=== PATIENT | male | born 1980 | race Caucasian/White ===

== ENCOUNTER 2017-04-08 20:13 | Emergency (ER) | payer SELFPAY ==
[2017-04-08 22:30] LABS: Bilirubin,Urine NEG (Negative); Blood,Urine SM (Negative); Color,Urine Yellow (Yellow); Mucus,Urine FEW /HPF; Nitrite,Urine NEG (Negative); Protein,Urine <15 mg/dL mg/dL (Negative); Urobilinogen,Urine < 2.0 mg/dL (<2.0); WBC,Urine < 1.0 /HPF (0.0-6.0)
--- NOTE | 2017-04-08 23:15 | XRay Report ---
FINAL REPORT PROCEDURE: XR SPINE LUMBOSACRAL 2-3V TECHNIQUE: Lumbar spine radiographs, including AP, lateral, and lumbosacral spot views. CPT 69451 HISTORY: back pain COMPARISON: No prior studies are available for comparison. FINDINGS: Alignment: Normal. Vertebral body heights/Disk spaces: Normal. Fracture(s): None. Facets: Normal. Bone mineralization: Normal. IMPRESSION: No evidence of an acute fracture or dislocation of the lumbar spine..
[2017-04-09] MEDS ORDERED: MOTRIN PO ONE (00:35)
--- NOTE | 2017-04-09 00:38 | Emergency Department Report ---
ED Back Pain/Injury HPI - General Chief Complaint: Back Pain/Injury Stated Complaint: BACK PAIN Time Seen by Provider: 04/09/17 00:33 Source: patient Limitations: No Limitations - History of Present Illness Initial Comments: 36-year-old male comes in for having a fall off a 16 feet ladder yesterday which is . Patient's now reporting back pain. He denies any loss of consciousness denies any head injury. Patient reports that he took a Tylenol 3 which helped with this pain and he was able to sleep. Patient has not taken any medication on Tuesday. He denies any urinary or bowel incontinence denies any headache fever chills nausea vomiting. Denies any alcohol use. Has no past medical history currently takes no medications and has no known drug allergies. MD Complaint: back pain, fall -: days(s) (2) Similar Symptoms Previously: No Place: work Radiation: none Severity scale (0 -10): 8 Quality: aching, other (stiffness) Consistency: intermittent Improves With: medication Worsens With: other (bending) Associated Symptoms: denies: weakness, numbness, difficulty urinating, incontinence, fever/chills, headaches Treatments Prior to Arrival: acetaminophen - Related Data Previous Rx's Medication Instructions Recorded Last Taken Type Prednisone [Prednisone 10 mg 10 mg PO .TAPER #1 tab.ds.pk 11/03/13 Unknown Rx (6-Day Pack, 21 Tabs)] hydrOXYzine HCL [Atarax] 25 mg PO Q6HR PRN #10 tablet 11/03/13 Unknown Rx Ibuprofen [Motrin 800 MG tab] 800 mg PO Q8H PRN #15 tablet 04/09/17 Unknown Rx Allergies Allergy/AdvReac Type Severity Reaction Status Date / Time No Known Allergies Allergy Verified 11/02/13 22:44 ED Review of Systems ROS: Stated complaint: BACK PAIN Other details as noted in HPI Constitutional: denies: chills, fever Eyes: denies: eye pain, eye discharge, vision change ENT: denies: ear pain, throat pain Respiratory: denies: cough, shortness of breath, wheezing Cardiovascular: denies: chest pain, palpitations Endocrine: no symptoms reported Gastrointestinal: denies: abdominal pain, nausea, diarrhea Genitourinary: denies: urgency, dysuria Musculoskeletal: back pain Skin: denies: rash, lesions Neurological: denies: headache, weakness, paresthesias Psychiatric: denies: anxiety, depression Hematological/Lymphatic: denies: easy bleeding, easy bruising ED Past Medical Hx - Past Medical History Previous Medical History?: No - Surgical History Past Surgical History?: No - Social History Smoking Status: Never Smoker Substance Use Type: None - Medications Home Medications: Home Medications Medication Instructions Recorded Confirmed Last Taken Type Prednisone [Prednisone 10 mg 10 mg PO .TAPER #1 tab.ds.pk 11/03/13 Unknown Rx (6-Day Pack, 21 Tabs)] hydrOXYzine HCL [Atarax] 25 mg PO Q6HR PRN #10 tablet 11/03/13 Unknown Rx Ibuprofen [Motrin 800 MG tab] 800 mg PO Q8H PRN #15 tablet 04/09/17 Unknown Rx ED Physical Exam - General Limitations: No Limitations General appearance: alert, in no apparent distress - Head Head exam: Present: atraumatic, normocephalic - Eye Eye exam: Present: normal appearance - ENT ENT exam: Present: mucous membranes moist - Neck Neck exam: Present: normal inspection - Extremities Exam Extremities exam: Present: normal inspection, full ROM - Back Exam Back exam: Present: normal inspection, full ROM - Expanded Back Exam Expanded Back exam: Negative Straight Leg Raising: Left, Right - Neurological Exam Neurological exam: Present: alert, oriented X3 - Psychiatric Psychiatric exam: Present: normal affect, normal mood - Skin Skin exam: Present: warm, dry, intact, normal color. Absent: rash ED Course Vital Signs 04/08/17 21:57 Temperature 98 F Pulse Rate 82 Respiratory 16 Rate Blood Pressure 137/86 O2 Sat by Pulse 98 Oximetry ED Medical Decision Making - Radiology Data X-rays are negative for any fractures or dislocations - Medical Decision Making Patient has been evaluated by this provider fast track. I discussed the patient with ibuprofen for probably be best for his pain. Discussed the patient to follow up with his primary care provider which he reports is a doctor somewhere in [place]. Patient and verbalized understanding Critical care attestation.: If time is entered above; I have spent that time in minutes in the direct care of this critically ill patient, excluding procedure time. ED Disposition Clinical Impression: Back pain due to injury Fall Qualifiers: Encounter type: initial encounter Qualified Code(s): W19.XXXA - Unspecified fall, initial encounter Disposition: DC-01 TO HOME OR SELFCARE Is pt being admited?: No Does the pt Need Aspirin: No Condition: Stable Instructions: Fall Prevention (ED), Acute Low Back Pain (ED) Additional Instructions: Please take medication as prescribed. Please eat this medication. If back persist or gets worse please follow up with her primary care provider within 3- 7 days. Prescriptions: Ibuprofen [Motrin 800 MG tab] 800 mg PO Q8H PRN #15 tablet PRN Reason: Pain Referrals: HIRO SANDERS MD [Primary Care Provider] - 3-5 Days [facility] [Provider Group] - 3-5 Days Forms: Work/School Release Form(ED)
[2017-04-09 00:55] VITALS: BP 134/83
== END 2017-04-09 00:56 | disposition home or self-care (01) ==
LOC: ED 20:13
DX: S29.9XXA Unspecified injury of thorax, initial encounter (principal); W11.XXXA Fall on and from ladder, initial encounter; Y93.89 Activity, other specified; Y99.0 Civilian activity done for income or pay; Y92.69 Other specified industrial and construction area as the place of occurrence of the external cause
CPT/HCPCS: 72100; 81001

== ENCOUNTER 2018-02-18 00:20 | Emergency (ER) | payer SELFPAY ==
[2018-02-18] MEDS ORDERED: TORADOL IV ONE (01:40)
[2018-02-18] MEDS ORDERED: ZOFRAN IV ONE (01:40)
[2018-02-18 02:10] LABS: Basophils # (Auto) 0.1 K/mm3 (0.0-0.1); Basophils % (Auto) 0.6 % (0.0-1.8); Eosinophils # (Auto) 0.2 K/mm3 (0.0-0.4); Eosinophils % (Auto) 1.1 % (0.0-4.3); Hematocrit 45.6 % (35.5-45.6); Hemoglobin 15.3 gm/dl (11.8-15.2); Lymphocytes # (Auto) 1.9 K/mm3 (1.2-5.4); Mean Corpuscular HGB Conc 34 % (32-34); Mean Corpuscular Hemoglobin 30 pg (28-32); Mean Corpuscular Volume 89 fl (84-94); Monocytes # (Auto) 1.4 K/mm3 (0.0-0.8); Monocytes % (Auto) 9.5 % (0.0-7.3); Platelet Count 300 K/mm3 (140-440)
[2018-02-18 02:37] LABS: Alanine Aminotransferase 96 units/L (7-56); Albumin 4.7 g/dL (3.9-5); BUN/Creatinine Ratio 17; Blood Urea Nitrogen 12 mg/dL (9-20); Calcium 9.8 mg/dL (8.4-10.2); Hemolysis Index 7
--- NOTE | 2018-02-18 08:17 | Cat Scan Report ---
FINAL REPORT EXAM: CT ABDOMEN PELVIS WO CON HISTORY: B/L flank and groin pain TECHNIQUE: CT images obtained through the Abdomen and Pelvis without contrast. Transaxial,coronal an d sagittal reformats are provided. PRIORS: None. FINDINGS: Imaged intrathoracic contents are unremarkable. Kidneys are normal in size, axis and position. No hydronephrosis or nephrolithiasis. The ureters are normal in course and caliber. No stones are seen within the urinary bladder. The liver, gallbladder, pancreas, spleen, and adrenal glands demonstrate a normal noncontrast appeara nce. Hollow enteric organs are normal in course and caliber. Focal edema and stranding are centered on a c ouple of left lower quadrant colonic diverticula seen on axial series 2, images 106-112. Additional m uch more significant pericolonic stranding and edema centered in the lower pelvic sigmoid colon on ax ial series 2, image 147. No pneumoperitoneum or focal fluid collection to suggest abscess formation a t this time. Appendix is normal. No intra-abdominal free air/fluid or lymphadenopathy. Aorta is normal in course and caliber. Superficial soft tissues are unremarkable. No acute or aggressive appearing skeletal findings. IMPRESSION: Two separate areas of acute diverticulitis in the left and mid lower abdomen/pelvis. No pneumoperiton eum or focal fluid collection to suggest abscess formation at this time.
--- NOTE | 2018-02-18 09:02 | Emergency Department Report ---
HPI - General Chief Complaint: Abdominal Pain Time Seen by Provider: 02/18/18 08:52 - HPI HPI: Room 4 The patient is a 37-year-old male presenting with a chief complaint of left lower quadrant abdominal pain. The patient states 4 days ago he had pain in his left flank the pain is since moved to the suprapubic and left lower quadrant region. Patient was to dysuria but denies hematuria or fever. Patient admits to nausea and vomiting. The patient states his pain is been intermittent. Patient was administered Toradol prior to my exam currently denies having pain Location: [See above] Duration: 4 days Quality: Pain Severity: Currently 0/10 Modifying factors: [see above] Context: [see above] Mode of transportation: [not driving] ED Past Medical Hx - Past Medical History Previous Medical History?: No - Surgical History Past Surgical History?: No - Family History Family history: no significant - Social History Smoking Status: Never Smoker Substance Use Type: None (denies illicit drug use) - Medications Home Medications: Home Medications Medication Instructions Recorded Confirmed Last Taken Type Prednisone [Prednisone 10 mg 10 mg PO .TAPER #1 tab.ds.pk 11/03/13 Unknown Rx (6-Day Pack, 21 Tabs)] hydrOXYzine HCL [Atarax] 25 mg PO Q6HR PRN #10 tablet 11/03/13 Unknown Rx Ibuprofen [Motrin 800 MG tab] 800 mg PO Q8H PRN #15 tablet 04/09/17 Unknown Rx HYDROcodone/APAP 5-325 [[place] 1 - 2 each PO Q6HR PRN #14 tablet 02/18/18 Unknown Rx 5/325] Promethazine [Phenergan TAB] 25 mg PO Q6HR PRN #20 tab 02/18/18 Unknown Rx levoFLOXacin [Levaquin] 750 mg PO QDAY #10 tablet 02/18/18 Unknown Rx metroNIDAZOLE [Flagyl] 500 mg PO Q8HR #30 tablet 02/18/18 Unknown Rx ED Review of Systems ROS: Stated complaint: ABD GROIN PAIN Other details as noted in HPI Constitutional: denies: fever Eyes: denies: eye pain ENT: denies: throat pain Respiratory: no symptoms reported Cardiovascular: denies: chest pain Endocrine: no symptoms reported Gastrointestinal: abdominal pain, nausea, vomiting Genitourinary: dysuria. denies: hematuria Musculoskeletal: back pain Neurological: denies: headache Physical Exam - Physical Exam Vital Signs: Vital Signs 02/18/18 00:55 Temperature 98.5 F Pulse Rate 80 Respiratory 20 Rate Blood Pressure 123/89 O2 Sat by Pulse 99 Oximetry Physical Exam: GENERAL: The patient is well-developed well-nourished male lying on stretcher not appearing to be in acute distress HEENT: Normocephalic. Atraumatic. Extraocular motions are intact. Patient has moist mucous membranes. NECK: Supple. Trachea midline CHEST/LUNGS: Clear to auscultation. There is no respiratory distress noted. HEART/CARDIOVASCULAR: Regular. There is no tachycardia. There is no gallop rub or murmur. ABDOMEN: Abdomen is soft, with mild discomfort to palpation in the suprapubic and left lower quadrant. Patient has normal bowel sounds. There is no abdominal distention. SKIN: There is no rash. There is no edema. There is no diaphoresis. NEURO: The patient is awake, alert, and oriented. The patient is cooperative. The patient has normal speech MUSCULOSKELETAL: There is no CVA tenderness. There is no evidence of acute injury. ED Course Vital Signs 02/18/18 00:55 Temperature 98.5 F Pulse Rate 80 Respiratory 20 Rate Blood Pressure 123/89 O2 Sat by Pulse 99 Oximetry ED Medical Decision Making - Lab Data Result diagrams: 02/18/18 01:49 02/18/18 01:49 Laboratory Tests 02/18/18 02/18/18 02/18/18 01:49 01:49 Unknown WBC 14.6 H RBC 5.10 H Hgb 15.3 H Hct 45.6 MCV 89 MCH 30 MCHC 34 RDW 13.0 L Plt Count 300 Lymph % (Auto) 13.0 L [place] % (Auto) 9.5 H Eos % (Auto) 1.1 Baso % (Auto) 0.6 Lymph # 1.9 [place] # 1.4 H Eos # 0.2 Baso # 0.1 Seg Neutrophils % 75.8 H Seg Neutrophils # 11.0 H Sodium 138 Potassium 3.9 Chloride 96.3 L Carbon Dioxide 29 Anion Gap 17 BUN 12 Creatinine 0.7 L Estimated GFR > 60 BUN/Creatinine Ratio 17 Glucose 85 Calcium 9.8 Total Bilirubin 0.30 AST 28 ALT 96 H Alkaline Phosphatase 112 Total Protein 7.2 Albumin 4.7 Albumin/Globulin Ratio 1.9 Urine Color Yellow Urine Turbidity Slightly-cloudy Urine pH 5.0 Ur Specific [place] 1.019 Urine Protein <15 mg/dl Urine Glucose (UA) Neg Urine Ketones Neg Urine Blood Neg Urine Nitrite Neg Urine Bilirubin Neg Urine Urobilinogen < 2.0 Ur Leukocyte Esterase Neg Urine WBC (Auto) 2.0 Urine RBC (Auto) 4.0 Urine Bacteria (Auto) 1+ Urine Mucus 3+ - Radiology Data Radiology results: report reviewed (CT abdomen and pelvis), image reviewed (CT abdomen and pelvis) [facility] [address] [place] [address] Cat Scan Report Signed Patient: PIOTR VILLALOBOS MR#: [id number] : 1980 Acct:[id number] Age/Sex: 37 / M ADM Date: 02/18/18 Loc: ED Attending Dr: Ordering Physician: HESHAM MCDOWELL MD Date of Service: 02/18/18 Procedure(s): CT abdomen pelvis wo con Accession Number(s): [id number] cc: ED DOCMD FINAL REPORT EXAM: CT ABDOMEN PELVIS WO CON HISTORY: B/L flank and groin pain TECHNIQUE: CT images obtained through the Abdomen and Pelvis without contrast. Transaxial,coronal and sagittal reformats are provided. PRIORS: None. FINDINGS: Imaged intrathoracic contents are unremarkable. Kidneys are normal in size, axis and position. No hydronephrosis or nephrolithiasis. The ureters are normal in course and caliber. No stones are seen within the urinary bladder. The liver, gallbladder, pancreas, spleen, and adrenal glands demonstrate a normal nonc ontrast appearance. Hollow enteric organs are normal in course and caliber. Focal edema and stranding are centered on a couple of left lower quadrant colonic diverticula seen on axial series 2, images 106-112. Additional much more significant pericolonic stranding and edema centered in the lower pelvic sigmoid colon on axial series 2, image 147. No pneumoperitoneum or focal fluid collection to suggest abscess formation at this time. Appendix is normal. No intra-abdominal free air/fluid or lymphadenopathy. Aorta is normal in course and caliber. Superficial soft tissues are unremarkable. No acute or aggressive appearing skeletal findings. IMPRESSION: Two separate areas of acute diverticulitis in the left and mid lower abdomen/pelvis. No pneumoperitoneum or focal fluid collection to suggest abscess formation at this time. Transcribed By: KEMI Dictated By: HIRO IGLESIAS MD Electronically Authenticated By: HIRO IGLESIAS MD Signed Date/Time: 02/18/18816 DD/ 8 TD/TT: 02/18/18818 - Differential Diagnosis renal colic, diverticulitis, UTI, pyelonephritis Critical care attestation.: If time is entered above; I have spent that time in minutes in the direct care of this critically ill patient, excluding procedure time. ED Disposition Clinical Impression: Acute diverticulitis, Acute abdominal pain Disposition: TO HOME OR SELFCARE Is pt being admited?: No Does the pt Need Aspirin: No Condition: Stable Instructions: Diverticulitis (ED) Additional Instructions: Return to the emergency department immediately should you develop worsening symptoms, fever, inability to tolerate food or liquid or any other concerns. 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 Please follow-up with him for further evaluation) Time of Disposition: 09:24
[2018-02-18 09:21] LABS: Bacteria,Urine 1+ /HPF (Negative); Bilirubin,Urine NEG (Negative); Blood,Urine NEG (Negative); Color,Urine Yellow (Yellow); Mucus,Urine 3+ /HPF; Protein,Urine <15 mg/dL mg/dL (Negative); Urobilinogen,Urine < 2.0 mg/dL (<2.0)
[2018-02-18 09:28] VITALS: BP 99/58
== END 2018-02-18 09:27 | disposition home or self-care (01) ==
LOC: ED 00:20
DX: K57.92 Diverticulitis of intestine, part unspecified, without perforation or abscess without bleeding (principal)
CPT/HCPCS: 36415; 74176; 80053; 81001; 85025; 96374; 96375; 99284; J1885; J2405